=== PATIENT | male | born 1960 | race Caucasian/White ===

== ENCOUNTER → 2020-04-06 | Outpatient (CLI) | payer OTHER ==
--- NOTE | 2020-04-08 01:00 | ECWPNPC ---
PATIENT NAME: NEHA HERNÁNDEZ : 1960 GENDER: MALE VISIT DATE: 04/06/2020 DISCHARGE DATE: 04/06/20 1451 VISIT LOCKED DATE TIME: PHYSICIAN: YIN APARICIO RESOURCE: YIN APARICIO REASON FOR APPOINTMENT 1. 2ND OPINION- LOWER BACK HISTORY OF PRESENT ILLNESS GENERAL: - -59-YEAR-OLD MALE IN FOR WORKER'S COMP. SECOND OPINION. PATIENT HAS A HISTORY OF LOW BACK PAIN SINCE 05/20/1996 WHEN HE WAS INJURED WHILE LIFTING A FURNACE AT WORK. PATIENT STATES WHEN HE LIFTED THE FURNACE HE FELT A POP IN HIS BACK AND THAT THEN THE PAIN BEGAN. PER PATIENT REPORT HE HAS BEEN ON FENTANYL PATCH 12.5 AND BACLOFEN 20 MG 3 TIMES A DAY IN THE PAST AND THIS HAS HELPED HIS PAIN. HIS CURRENT PROVIDER REFUSES TO PRESCRIBE FENTANYL PATCHES AND HAS SINCE SWITCHED PATIENT TO NUCYNTA PER PATIENT REPORT THIS IS INADEQUATE TO COVER HIS PAIN. PATIENT ALSO STATES THAT HIS PREVIOUS PROVIDER DECREASED HIS BACLOFEN FROM 20 MG 3 TIMES A DAY TO 10 MG 3 TIMES A DAY AND THAT HE IS EXPERIENCING INCREASED PAIN A RESULT OF THIS. FALL RISK SCREENING: SCREENING :NO FALLS REPORTED IN THE LAST YEAR PAIN SCREENING: PATIENT HAS A COMPLAINT OF ACUTE OR CHRONIC PAIN :NO NURSING NOTE: - -. PAIN CENTER INTAKE QUESTIONS: DO YOU HAVE A HISTORY OF MRSA? :NO DO YOU TAKE A BLOOD THINNERS? :NO DO YOU HAVE ANY BLEEDING DISORDERS? :NO ANY NEW NUMBNESS OR WEAKNESS IN YOUR LEGS OR ARMS? :NO ANY PACEMAKER,DEFIBRILLATOR, OR DORSAL COLUMN STIMULATOR? :NO DO YOU HAVE ANY RASHES OR OPEN SORES? :NO ARE YOU ALLERGIC TO IV DYE? :NO ARE YOU DIABETIC? :YES ANY NEW PROBLEMS WITH YOUR MEDICATIONS? :NO HAVE YOU RECEIVED A VACCINE IN THE PAST 30 DAYS? :NO DO YOU PLAN TO RECEIVE A VACCINE IN THE NEXT 21 DAYS? :NO DO YOU NEED ANY PRESCRIPTION? :NO DO YOU TAKE ANY IMMUNOSUPPRESSIVE MEDICATIONS? :NO CURRENT MEDICATIONS TAKING BISOPROLOL-HYDROCHLOROTHIAZIDE 10-6.25 MG TABLET 1 TABLET ORALLY ONCE A DAY TAKING MONTELUKAST SODIUM 10 MG TABLET 1 TABLET ORALLY ONCE A DAY TAKING ALLOPURINOL 100 MG TABLET 1 TABLET ORALLY ONCE A DAY TAKING SIMVASTATIN 10 MG TABLET 1 TABLET IN THE EVENING ORALLY ONCE A DAY TAKING AMITRIPTYLINE HCL 150 MG TABLET 1 TABLET AT BEDTIME ORALLY ONCE A DAY TAKING BACLOFEN 10 MG TABLET 1 TABLET WITH FOOD OR MILK ORALLY THREE TIMES DAILY TAKING NUCYNTA 50 MG TABLET 1 TABLET ORALLY THREE TIMES DAILY TAKING VITAMIN D (ERGOCALCIFEROL) 50 MCG (2000 UT) CAPSULE 1 CAPSULE ORALLY ONCE A DAY TAKING AMIODARONE HCL 100 MG TABLET 1 TABLET ORALLY ONCE A DAY TAKING NEXIUM 40 MG CAPSULE DELAYED RELEASE 1 CAPSULE ORALLY ONCE A DAY TAKING GLIPIZIDE 5 MG TABLET 1 TABLET 30 MINUTES BEFORE BREAKFAST ORALLY ONCE A DAY TAKING AMLODIPINE BESYLATE 5 MG TABLET 1 TABLET ORALLY ONCE A DAY MEDICATION LIST REVIEWED AND RECONCILED WITH THE PATIENT PAST MEDICAL HISTORY DIABETES HYPERTENSION HYPERLIPIDEMIA ALLERGIES SULFA (FOR ALLERGY USE ONLY) PREDNISONE CELEBREX ZIAC MORPHINE SULFATE METFORMIN HCL GABAPENTIN BUTRANS TRAMADOL HCL TYLENOL ARTHRITIS PAIN ESOMEPRAZOLE MAGNESIUM VALSARTAN CODEINE SULFATE SURGICAL HISTORY NO SURGICAL HISTORY DOCUMENTED. FAMILY HISTORY FATHER: MOTHER: SIBLINGS: ALIVE DAUGHTER(S): ALIVE 5 BROTHER(S) , 4 SISTER(S) - HEALTHY. 1DAUGHTER(S) . FATHER- LEUKEMIAMOTHER- HEART REPLACEMENT, DEGENERATIVE JOINT DISEASEDAUGHTER- CLINICAL DEPRESSION1 BROTHER- LEUKEMIA. SOCIAL HISTORY GENERAL: TOBACCO USE ARE YOU A:FORMER SMOKER HOW LONG HAS IT BEEN SINCE YOU LAST SMOKED?> 10 YEARS SMOKING CESSATION INFORMATION GIVEN04/06/2020 LATEX QUESTIONNAIRE LATEX ALLERGY : HAVE YOU EVER DEVELOPED ANY TYPE OF REACTION AFTER HANDLING LATEX PRODUCTS SUCH RUBBER GLOVES, CONDOMS, DIAPHRAGMS, BALLOONS, SOCKS, OR UNDERWEAR?NO LATEX ALLERGY : HAVE YOU EVER DEVELOPED ANY TYPE OF REACTION DURING OR AFTER DENTAL APPOINTMENT, VAGINAL/RECTAL EXAMINATION, SURGICAL PROCEDURE, OR ANY OTHER EXPOSURE?NO LATEX RISK : HAVE YOU EVER HAD ANY DIFFICULTY BREATHING OR HIVES AFTER EATING OR HANDLING ANY FRUITS, OR VEGETABLES; SUCH KIWI, BANANAS, STONE FRUITS, OR CHESTNUTSNO LATEX RISK : DO YOU HAVE A PREVIOUS PERSONAL HISTORY OF MORE THAN NINE SURGERIES, SPINA BIFIDA, OR REPEATED CATHERIZATIONS? NO LATEX RISK : ARE YOU FREQUENTLY EXPOSED TO LATEX PRODUCTS IN YOUR OCCUPATION?YES DATE ASKED : 04/06/2020 ALCOHOL SCREENING DID YOU HAVE A DRINK CONTAINING ALCOHOL IN THE PAST YEAR?NO POINTS0 INTERPRETATIONNEGATIVE RECREATIONAL DRUG USE DRUG USE?NO CAFFEINE CAFFEINE USE?YES HOW OFTEN AND HOW MUCH? 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 OTHERS AT HOME: NONE. PAIN CLINIC PFS, CLERGY, PUBLIC HEALTH REFERRALS PFS REFERRAL NEEDED?NO CLERGY REFERRAL NEEDED?NO PUBLIC HEALTH REFERRAL NEEDED?NO WAS THE PROVIDER NOTIFIED OF ANY PERTINENT INFO?YES HAS THE PATIENT BEEN EDUCATED REGARDING HIS/HER PLAN OF CARE?YES HAS THE PATIENT BEEN EDUCATED REGARDING PAIN, THE RISK FOR PAIN, THE IMPORTANCE OF EFFECTIVE PAIN MANAGEMENT, AND THE PAIN ASSESSMENT PROCESS?YES ADVANCE DIRECTIVE ADVANCE DIRECTIVE DISCUSSED WITH PATIENT: PT. DENIES HOSPITALIZATION/MAJOR DIAGNOSTIC PROCEDURE NO HOSPITALIZATION HISTORY. REVIEW OF SYSTEMS CONSTITUTIONAL: ANY RECENT FEVER NO . CHILLS NO . WEIGHT CHANGE OF UNKNOWN REASONS NO . MUSCULOSKELETAL: ANY UNUSUAL JOINT PAIN OR SWELLING NOT MENTIONED NO . SYSTEMIC LUPUS NO . ANY NEUROMUSCULAR DISORDER NOT MENTIONED NO . LYME DISEASE NO . GASTROENTEROLOGY: ANY NEW CHANGE IN BOWEL CONTROL? NO . HISTORY OF LIVER DISORDER NOT MENTIONED NO . HISTORY OF UNUSUAL ABDOMINAL PAIN OR CRAMPING NOT MENTIONED NO . NO CONSTIPATION. GENITOURINARY: ANY NEW CHANGE IN BLADDER CONTROL? NO . ANY RENAL/KIDNEY CONDITON NOT MENTIONED NO . NEUROLOGY: HISTORY OF TBI NOT MENTIONED NO . OTHER NEW NUMBNESS OR PAIN PATTERNS NOT MENTIONED NO . NEW ONSET DIZZINESS OR NEUROLOGICAL CHANGES NOT MENTIONED NO . HISTORY OF SEVERE HEADACHES NOT MENTIONED NO . HISTORY OF STROKE OR NEUROLOGICAL DISORDER NOT MENTIONED NO . CARDIOLOGY: HEART SURGERY NO . CONGESTIVE HEART FAILURE/FLUID OVERLOAD NOT MENTIONED NO . HISTORY OF CHEST PAIN,IRREGULAR HEART BEAT NOT MENTIONED NO . RESPIRATORY: SHORTNESS OF BREATH ON EXERTION, WHEEZES, UNUSUAL COUGH NOT MENTIONED NO . ENDOCRINOLOGY: ADRENAL GLAND OR THYROID DISORDERS NOT MENTIONED NO . UNUSUAL URINATION, DIZZINESS OR LETHARGY NOT MENTIONED NO . VITAL SIGNS WT 254 LBS, HT 58 IN, BMI 53.08 INDEX, BP 145/90 MM HG, HR 72 /MIN, RR 18 /MIN, TEMP 98.2 F, OXYGEN SAT % 95%, SAFE IN ENV? 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 EXAMINATION GENERAL EXAMINATION: GENERALNO ACUTE DISTRESS, WELL NOURISHED AND HYDRATED. PSYCHAPPROPRIATE MOOD AND AFFECT . LUNGS:CLEAR TO AUSCULTATION BILATERALLY, NO WHEEZES, RHONCHI, RALES. HEART:NO MURMURS, REGULAR RATE AND RHYTHM. BACK:DENIES POINT TENDERNESS ALONG LUMBAR SPINE, SURROUNDING SKIN SHOWS NO ERYTHEMA, ECCHYMOSIS, INCREASED WARMTH, AND/OR SKIN ERUPTIONS NOTED. POSITIVE MODIFIED BILATERAL SLR . MUSCULOSKELETAL:EQUAL STRENGTH OF THE LOWER EXTREMITIES BILATERALLY . 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 SECOND OPINION. 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 WE'LL FOLLOW-UP IN ONE MONTH TO DETERMINE EFFICACY OF TREATMENT. PATIENT TO SIGN NARCOTIC AGREEMENT TODAY. INFORMED PATIENT TO STOP NUCYNTA ONCE HE STARTS ON THE FENTANYL. PATIENT HAS EXPRESSED UNDERSTANDING OF AND WAS IN AGREEMENT WITH TREATMENT PLAN. GIVEN TIME TO ASK QUESTIONS AND EXPRESS CONCERNS. , ISTOP REGISTRY REVIEWED AND DEMONSTRATES COMPLLIANCE. (REF # [id number] ) BRINGS IN MEDICATIONS WHICH IS APPROPRIATE FOR WHAT WAS DISPENSED. RECENT URINE TOXICOLOGY REVIEWED. NO UNAUTHORIZED MEDICATIONS. NO ILLICIT SUBSTANCES AND PRESCRIBED MEDICATIONS WERE PRESENT. PROCEDURES PN WORKMANS' COMP OPINION IN YOUR OPINION, WAS THE INCIDENT THAT THE PATIENT DESCRIBED THE COMPETENT MEDICAL CAUSE OF THIS INJURY/ILLNESS? YES ARE THE PATIENT'S COMPLAINTS CONSISTENT WITH HIS/HER HISTORY OF THE INJURY/ILLNESS? YES IS THE PATIENT'S HISTORY OF THE INJURY/ILLNESS CONSISTENT WITH YOUR OBJECTIVE FINDING? YES WHAT IS THE PERCENTAGE OF TEMPORARY IMPAIRMENT? MARKED = 75% IS THE PATIENT WORKING? YES DOCTOR ON SITE: KELLIE CLEMENT MD PROCEDURE CODES FA211 ESTABILISHED PATIENT [facility] FACILITY CHARGE DISPOSITION & COMMUNICATION FOLLOW UP 4 WEEKS (REASON: BACK PAIN NEW MED) ELECTRONICALLY SIGNED BY EMERITA ARIZA ON 04/07/2020 AT 08:48 AM EDT DISCLAIMER : THIS IS A VISIT SUMMARY EXTRACTED FROM THE [employer] CHART. IT IS NOT A COPY OF THE [employer] PROGRESS NOTE. MTDD
== END ==
LOC: M PAIN 14:15
PROVIDERS: ATTEND Family Medicine
DX: M51.86 Other intervertebral disc disorders, lumbar region (principal)

== ENCOUNTER → 2020-05-04 | Outpatient (CLI) | payer OTHER | LOC: M PAIN 08:30 | PROVIDERS: ATTEND Family Medicine | DX: M51.86 Other intervertebral disc disorders, lumbar region (principal) ==

== ENCOUNTER → 2020-08-06 | Outpatient (CLI) | payer OTHER ==
--- NOTE | 2020-08-10 05:58 | ECWPNPC ---
PATIENT NAME: NEHA HERNÁNDEZ : 1960 GENDER: MALE VISIT DATE: 08/06/2020 DISCHARGE DATE: 08/06/20 1200 VISIT LOCKED DATE TIME: PHYSICIAN: YIN APARICIO PHYSICIAN PAGER NO: ACTIVE RESOURCE: YIN APARICIO REASON FOR APPOINTMENT 1. W/C BACK/UTOX HISTORY OF PRESENT ILLNESS GENERAL: - 59-YEAR-OLD MALE IN FOR CHRONIC PAIN FOLLOW-UP. HE RATES HIS PAIN CURRENTLY AT AN 8 OUT OF 10 AND DESCRIBES IT ACHING, AND CONTINUOUS. HE FEELS MEDICATIONS ARE HELPFUL AND DENIES MED SIDE EFFECTS AT THIS TIME. PATIENT WAS HURT IN A WORK RELATED INCIDENT ON 05/20/1996 WHEN HE WAS INJURED WHILE LIFTING A FURNACE. FALL RISK SCREENING: SCREENING :NO FALLS REPORTED IN THE LAST YEAR PAIN SCREENING: PATIENT HAS A COMPLAINT OF ACUTE OR CHRONIC PAIN :YES LOCATION OF PAIN:LOW BACK INTENSITY OF PAIN (SCALE OF 1 TO 10):8 WHAT DOES YOUR PAIN FEEL LIKE:ACHING, CONTINOUS DURATION:CONTINOUS PAIN IS INCREASED BY:ACTIVITIES PAIN IS DECREASED BY:USE OF PAIN MEDICATIONS FENTANYL PATCHES NURSING NOTE: -. PAIN CENTER INTAKE QUESTIONS: DO YOU HAVE A HISTORY OF MRSA? :NO DO YOU TAKE A BLOOD THINNERS? :NO DO YOU HAVE ANY BLEEDING DISORDERS? :NO ANY NEW NUMBNESS OR WEAKNESS IN YOUR LEGS OR ARMS? :NO ANY PACEMAKER,DEFIBRILLATOR, OR DORSAL COLUMN STIMULATOR? :NO DO YOU HAVE ANY RASHES OR OPEN SORES? :NO ARE YOU ALLERGIC TO IV DYE? :NO ARE YOU DIABETIC? :YES ANY NEW PROBLEMS WITH YOUR MEDICATIONS? :NO HAVE YOU RECEIVED A VACCINE IN THE PAST 30 DAYS? :NO DO YOU PLAN TO RECEIVE A VACCINE IN THE NEXT 21 DAYS? :YES IF SO WHAT VACCINE AND WHEN? PLANS ON GETTING THE FLU SHOT [place] DO YOU NEED ANY PRESCRIPTION? :YES FENTANYL PATCHES, AMITRIPTYLINE, BACLOFEN DO YOU TAKE ANY IMMUNOSUPPRESSIVE MEDICATIONS? :NO ANY HISTORY OF SEIZURES? :NO ANY HISTORY OF CARDIAC ISSUES OR EVENTS? :NO DO YOU HAVE SLEEP APNEA? :NO ANY RECENT HEAD INJURY? :NO DO YOU HAVE ANY NEW INFECTIONS? :NO IS THERE A CHANCE YOU COULD BE ? :NO ARE YOU BREAST FEEDING? :NO CURRENT MEDICATIONS TAKING BISOPROLOL-HYDROCHLOROTHIAZIDE 10-6.25 MG TABLET 1 TABLET ORALLY ONCE A DAY TAKING MONTELUKAST SODIUM 10 MG TABLET 1 TABLET ORALLY ONCE A DAY TAKING ALLOPURINOL 100 MG TABLET 1 TABLET ORALLY ONCE A DAY TAKING SIMVASTATIN 10 MG TABLET 1 TABLET IN THE EVENING ORALLY ONCE A DAY TAKING VITAMIN D (ERGOCALCIFEROL) 50 MCG (1999) CAPSULE 1 CAPSULE ORALLY ONCE A DAY TAKING AMIODARONE HCL 100 MG TABLET 1 TABLET ORALLY ONCE A DAY TAKING NEXIUM 40 MG CAPSULE DELAYED RELEASE 1 CAPSULE ORALLY ONCE A DAY TAKING GLIPIZIDE 5 MG TABLET 1 TABLET 30 MINUTES BEFORE BREAKFAST ORALLY ONCE A DAY TAKING AMLODIPINE BESYLATE 5 MG TABLET 1 TABLET ORALLY ONCE A DAY TAKING BACLOFEN 20 MG TABLET 1 TABLET WITH FOOD OR MILK ORALLY THREE TIMES DAILY TAKING AMITRIPTYLINE HCL 150 MG TABLET 1 TABLET AT BEDTIME ORALLY ONCE A DAY TAKING FENTANYL 12 MCG/HR PATCH 72 HOUR 1 PATCH TO SKIN TRANSDERMAL EVERY 3 DAYS MEDICATION LIST REVIEWED AND RECONCILED WITH THE PATIENT PAST MEDICAL HISTORY DIABETES HYPERTENSION HYPERLIPIDEMIA ALLERGIES SULFA (FOR ALLERGY USE ONLY) PREDNISONE CELEBREX ZIAC MORPHINE SULFATE METFORMIN HCL GABAPENTIN BUTRANS TRAMADOL HCL TYLENOL ARTHRITIS PAIN ESOMEPRAZOLE MAGNESIUM VALSARTAN CODEINE SULFATE SURGICAL HISTORY NO SURGICAL HISTORY DOCUMENTED. FAMILY HISTORY FATHER: MOTHER: SIBLINGS: ALIVE DAUGHTER(S): ALIVE 5 BROTHER(S) , 4 SISTER(S) - HEALTHY. 1DAUGHTER(S) . FATHER- LEUKEMIAMOTHER- HEART REPLACEMENT, DEGENERATIVE JOINT DISEASEDAUGHTER- CLINICAL DEPRESSION1 BROTHER- LEUKEMIA. SOCIAL HISTORY GENERAL: TOBACCO USE ARE YOU A:FORMER SMOKER HOW LONG HAS IT BEEN SINCE YOU LAST SMOKED?> 10 YEARS SMOKING CESSATION INFORMATION GIVEN04/06/2020 LATEX QUESTIONNAIRE LATEX ALLERGY : HAVE YOU EVER DEVELOPED ANY TYPE OF REACTION AFTER HANDLING LATEX PRODUCTS SUCH RUBBER GLOVES, CONDOMS, DIAPHRAGMS, BALLOONS, SOCKS, OR UNDERWEAR?NO LATEX ALLERGY : HAVE YOU EVER DEVELOPED ANY TYPE OF REACTION DURING OR AFTER DENTAL APPOINTMENT, VAGINAL/RECTAL EXAMINATION, SURGICAL PROCEDURE, OR ANY OTHER EXPOSURE?NO LATEX RISK : HAVE YOU EVER HAD ANY DIFFICULTY BREATHING OR HIVES AFTER EATING OR HANDLING ANY FRUITS, OR VEGETABLES; SUCH KIWI, BANANAS, STONE FRUITS, OR CHESTNUTSNO LATEX RISK : DO YOU HAVE A PREVIOUS PERSONAL HISTORY OF MORE THAN NINE SURGERIES, SPINA BIFIDA, OR REPEATED CATHERIZATIONS? NO LATEX RISK : ARE YOU FREQUENTLY EXPOSED TO LATEX PRODUCTS IN YOUR OCCUPATION?YES DATE ASKED : 08/06/2020 ALCOHOL SCREENING DID YOU HAVE A DRINK CONTAINING ALCOHOL IN THE PAST YEAR?NO POINTS0 INTERPRETATIONNEGATIVE RECREATIONAL DRUG USE DRUG USE?NO PATIENT DENIES ABUSE OR MISSUSED OF ANY MEDICATION DENIES PATIENT DENIES USE OF ANY ILLEGAL SUBSTANCE INCLUDING MARIJUANA OR COCAINE DENIES CAFFEINE CAFFEINE USE?YES HOW OFTEN AND HOW MUCH? 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 OTHERS AT HOME: NONE. PAIN CLINIC PFS, CLERGY, PUBLIC HEALTH REFERRALS PFS REFERRAL NEEDED?NO CLERGY REFERRAL NEEDED?NO PUBLIC HEALTH REFERRAL NEEDED?NO WAS THE PROVIDER NOTIFIED OF ANY PERTINENT INFO?YES HAS THE PATIENT BEEN EDUCATED REGARDING HIS/HER PLAN OF CARE?YES HAS THE PATIENT BEEN EDUCATED REGARDING PAIN, THE RISK FOR PAIN, THE IMPORTANCE OF EFFECTIVE PAIN MANAGEMENT, AND THE PAIN ASSESSMENT PROCESS?YES ADVANCE DIRECTIVE ADVANCE DIRECTIVE DISCUSSED WITH PATIENT:YES PATIENT STATES HE HAS NO ADVANCED DIRECTIVES AND DECLINES INORMATION HOSPITALIZATION/MAJOR DIAGNOSTIC PROCEDURE NO HOSPITALIZATION HISTORY. REVIEW OF SYSTEMS CONSTITUTIONAL: ANY RECENT FEVER NO . CHILLS NO . WEIGHT CHANGE OF UNKNOWN REASONS NO . GASTROENTEROLOGY: NEW UNEXPLAINABLE CHANGES IN BOWEL CONTROL NO . CONSTIPATION NO . GENITOURINARY: ANY NEW CHANGE IN BLADDER CONTROL? NO . NEUROLOGY: NEW ONSET DIZZINESS OR NEUROLOGICAL CHANGES NOT MENTIONED NO . NEW NUMBNESS OR PAIN PATTERNS NOT MENTIONED AND PERTINENT TO TODAY'S VISIT NO . CARDIOLOGY: NEW CHEST PRESSURE NO . NEW CHEST PAIN NO . RESPIRATORY: UNEXPLAINABLE COUGH NO . NEW SHORTNESS OF BREATH NO . VITAL SIGNS WT 243.6 LBS, HT 58 IN, BMI 50.91 INDEX, BP 118/75 MM HG, HR 78 /MIN, RR 18 /MIN, TEMP 98.2 F, OXYGEN SAT % 100%, SAFE IN ENV? (Y/N) YES, NA INITIALS AW 1133, REVIEWED BY: BEVREEDGARD FONTANA RN. EXAMINATION GENERAL EXAMINATION: GENERALNO ACUTE DISTRESS, WELL NOURISHED AND HYDRATED. PSYCHAPPROPRIATE MOOD AND AFFECT . LUNGS:CLEAR TO AUSCULTATION BILATERALLY, NO WHEEZES, RHONCHI, RALES. HEART:NO MURMURS, REGULAR RATE AND RHYTHM. ASSESSMENTS INTERVERTEBRAL DISC DISEASE - M51.9 (PRIMARY) TREATMENT INTERVERTEBRAL DISC DISEASE NOTES: 59 YEAR OLD MALE IN FOR WORKERS COMP CHRONIC PAIN FOLLOW UP. GIVEN PRESENTING SYMPTOMS RECOMMEND CONTINUATION OF CURRENT MEDICATION REGIMEN WITH FOLLOW UP IN 3 MONTHS. PATIENT HAS EXPRESSED UNDERSTANDING OF AND WAS IN AGREEMENT WITH TREATMENT PLAN. GIVEN TIME TO ASK QUESTIONS AND EXPRESS CONCERNS. , ISTOP REGISTRY REVIEWED AND DEMONSTRATES COMPLLIANCE. (REF # [id number] ) BRINGS IN MEDICATIONS WHICH IS APPROPRIATE FOR WHAT WAS DISPENSED. RECENT URINE TOXICOLOGY REVIEWED. NO UNAUTHORIZED MEDICATIONS. NO ILLICIT SUBSTANCES AND PRESCRIBED MEDICATIONS WERE PRESENT. PROCEDURE CODES FA211 ESTABILISHED PATIENT [facility] CHARGE DISPOSITION & COMMUNICATION FOLLOW UP 3 MONTHS (REASON: WORKERS COMP/BACK PAIN ) ELECTRONICALLY SIGNED BY EMERITA ARIZA ON 08/09/2020 AT 08:33 AM EST DISCLAIMER : THIS IS A VISIT SUMMARY EXTRACTED FROM THE [employer] CHART. IT IS NOT A COPY OF THE [employer] PROGRESS NOTE. RAHUL
== END ==
LOC: M PAIN 11:00
PROVIDERS: ATTEND Family Medicine
DX: M51.9 Unspecified thoracic, thoracolumbar and lumbosacral intervertebral disc disorder (principal); E11.9 Type 2 diabetes mellitus without complications; I10 Essential (primary) hypertension; E78.5 Hyperlipidemia, unspecified; Z87.891 Personal history of nicotine dependence; Z79.84 Long term (current) use of oral hypoglycemic drugs; Z79.899 Other long term (current) drug therapy; Z88.2 Allergy status to sulfonamides; Z88.8 Allergy status to other drugs, medicaments and biological substances; Z88.5 Allergy status to narcotic agent; Z88.6 Allergy status to analgesic agent

== ENCOUNTER → 2020-10-18 | Outpatient (CLI) | payer OTHER ==
--- NOTE | 2020-10-20 04:27 | ECWPNPC ---
PATIENT NAME: NEHA HERNÁNDEZ : 1960 GENDER: MALE VISIT DATE: 10/18/2020 DISCHARGE DATE: 10/18/20 1405 VISIT LOCKED DATE TIME: PHYSICIAN: YIN APARICIO PHYSICIAN PAGER NO: ACTIVE RESOURCE: YIN APARICIO REASON FOR APPOINTMENT 1. WORKERS COMP/BACK PAIN HISTORY OF PRESENT ILLNESS GENERAL: 60-YEAR-OLD MALE IN FOR WORKER'S COMP. CHRONIC PAIN FOLLOW-UP. HE RATES HIS PAIN CURRENTLY AT A 7 OUT OF 10 AND DESCRIBES IT ACHING, SHARP, AND SHOOTING. PATIENT FEELS MEDICATIONS ARE HELPFUL BUT DOES ADMIT TO BREAKTHROUGH PAIN AT TIMES. PATIENT WAS HURT IN A WORK RELATED INCIDENT ON 05/20/1996 WHEN HE WAS INJURED WHILE LIFTING A FURNACE. -. FALL RISK SCREENING: SCREENING :NO FALLS REPORTED IN THE LAST YEAR PAIN SCREENING: PATIENT HAS A COMPLAINT OF ACUTE OR CHRONIC PAIN :YES LOCATION OF PAIN:LOW BACK INTENSITY OF PAIN (SCALE OF 1 TO 10):7 WHAT DOES YOUR PAIN FEEL LIKE:ACHING, SHARP, SHOOTING DURATION:CONTINOUS, CONSTANT PAIN IS INCREASED BY:ACTIVITIES WALKING, BENDING PAIN IS DECREASED BY:USE OF PAIN MEDICATIONS REST NURSING NOTE: -. PAIN CENTER INTAKE QUESTIONS: DO YOU HAVE A HISTORY OF MRSA? :NO DO YOU TAKE A BLOOD THINNERS? :NO DO YOU HAVE ANY BLEEDING DISORDERS? :NO ANY NEW NUMBNESS OR WEAKNESS IN YOUR LEGS OR ARMS? :NO ANY PACEMAKER,DEFIBRILLATOR, OR DORSAL COLUMN STIMULATOR? :NO DO YOU HAVE ANY RASHES OR OPEN SORES? :NO ARE YOU ALLERGIC TO IV DYE? :NO ARE YOU DIABETIC? :YES ANY NEW PROBLEMS WITH YOUR MEDICATIONS? :YES PATIENT STATING THAT PATCHES ON BACK NOT WORKING HAVE YOU RECEIVED A VACCINE IN THE PAST 30 DAYS? :YES IF SO WHAT VACCINE AND WHEN? FLU SHOT END BER DO YOU PLAN TO RECEIVE A VACCINE IN THE NEXT 21 DAYS? :NO DO YOU NEED ANY PRESCRIPTION? :NO DO YOU TAKE ANY IMMUNOSUPPRESSIVE MEDICATIONS? :YES ALLOPURINOL IS THERE A CHANCE YOU COULD BE ? :NO ARE YOU BREAST FEEDING? :NO CURRENT MEDICATIONS TAKING BISOPROLOL-HYDROCHLOROTHIAZIDE 10-6.25 MG TABLET 2 TABLET ORALLY ONCE A DAY TAKING MONTELUKAST SODIUM 10 MG TABLET 1 TABLET ORALLY ONCE A DAY TAKING ALLOPURINOL 100 MG TABLET 1 TABLET ORALLY ONCE A DAY TAKING SIMVASTATIN 10 MG TABLET 1 TABLET IN THE EVENING ORALLY ONCE A DAY TAKING VITAMIN D (ERGOCALCIFEROL) 50 MCG (1999) CAPSULE 1 CAPSULE ORALLY ONCE A DAY TAKING AMIODARONE HCL 100 MG TABLET 1 TABLET ORALLY ONCE A DAY TAKING NEXIUM 40 MG CAPSULE DELAYED RELEASE 1 CAPSULE ORALLY ONCE A DAY TAKING GLIPIZIDE 5 MG TABLET 1 TABLET 30 MINUTES BEFORE BREAKFAST ORALLY ONCE A DAY TAKING AMLODIPINE BESYLATE 5 MG TABLET 1 TABLET ORALLY ONCE A DAY TAKING BACLOFEN 20 MG TABLET 1 TABLET WITH FOOD OR MILK ORALLY THREE TIMES DAILY TAKING AMITRIPTYLINE HCL 150 MG TABLET 1 TABLET AT BEDTIME ORALLY ONCE A DAY TAKING FENTANYL 12 MCG/HR PATCH 72 HOUR 1 PATCH TO SKIN TRANSDERMAL EVERY 3 DAYS MEDICATION LIST REVIEWED AND RECONCILED WITH THE PATIENT PAST MEDICAL HISTORY DIABETES HYPERTENSION HYPERLIPIDEMIA BACK PAIN ALLERGIES SULFA (FOR ALLERGY USE ONLY) PREDNISONE CELEBREX ZIAC MORPHINE SULFATE METFORMIN HCL GABAPENTIN BUTRANS TRAMADOL HCL TYLENOL ARTHRITIS PAIN ESOMEPRAZOLE MAGNESIUM VALSARTAN CODEINE SULFATE SOCIAL HISTORY GENERAL: TOBACCO USE ARE YOU A:FORMER SMOKER HOW LONG HAS IT BEEN SINCE YOU LAST SMOKED?> 10 YEARS SMOKING CESSATION INFORMATION GIVEN04/06/2020 LATEX QUESTIONNAIRE LATEX ALLERGY : HAVE YOU EVER DEVELOPED ANY TYPE OF REACTION AFTER HANDLING LATEX PRODUCTS SUCH RUBBER GLOVES, CONDOMS, DIAPHRAGMS, BALLOONS, SOCKS, OR UNDERWEAR?NO LATEX ALLERGY : HAVE YOU EVER DEVELOPED ANY TYPE OF REACTION DURING OR AFTER DENTAL APPOINTMENT, VAGINAL/RECTAL EXAMINATION, SURGICAL PROCEDURE, OR ANY OTHER EXPOSURE?NO LATEX RISK : HAVE YOU EVER HAD ANY DIFFICULTY BREATHING OR HIVES AFTER EATING OR HANDLING ANY FRUITS, OR VEGETABLES; SUCH KIWI, BANANAS, STONE FRUITS, OR CHESTNUTSNO LATEX RISK : DO YOU HAVE A PREVIOUS PERSONAL HISTORY OF MORE THAN NINE SURGERIES, SPINA BIFIDA, OR REPEATED CATHERIZATIONS? NO LATEX RISK : ARE YOU FREQUENTLY EXPOSED TO LATEX PRODUCTS IN YOUR OCCUPATION?NO DATE ASKED : 10/18/2020 ALCOHOL USE: YES. ALCOHOL SCREENING DID YOU HAVE A DRINK CONTAINING ALCOHOL IN THE PAST YEAR?NO POINTS0 INTERPRETATIONNEGATIVE RECREATIONAL DRUG USE DRUG USE?NO PATIENT DENIES ABUSE OR MISSUSED OF ANY MEDICATION DENIES PATIENT DENIES USE OF ANY ILLEGAL SUBSTANCE INCLUDING MARIJUANA OR COCAINE DENIES CAFFEINE CAFFEINE USE?YES HOW OFTEN AND HOW MUCH? 2/DAY LANGUAGE LANGUAGES SPOKEN:ARABIC LEARNING BARRIERS / SPECIAL NEEDS CHANGE FROM LAST VISIT?YES BARRIERS TO LEARNING?NO HEARING IMPAIRED?NO VISION IMPAIRED?YES :CORRECTIVE LENSES COGNITIVELY IMPAIRED?NO READINESS TO LEARN?YES LEARNING PREFERENCES?NO LEARNING CAPABILITIES PRESENT?YES EMOTIONAL BARRIERS?NO SPECIAL DEVICES?NO RESIDENTIAL SUPPORT WORKER NEEDED?NO MARITAL STATUS: . OTHERS AT HOME: NONE. REVIEW OF SYSTEMS CONSTITUTIONAL: ANY RECENT FEVER NO . CHILLS NO . WEIGHT CHANGE OF UNKNOWN REASONS NO . GASTROENTEROLOGY: NEW UNEXPLAINABLE CHANGES IN BOWEL CONTROL NO . CONSTIPATION NO . GENITOURINARY: ANY NEW CHANGE IN BLADDER CONTROL? NO . NEUROLOGY: NEW ONSET DIZZINESS OR NEUROLOGICAL CHANGES NOT MENTIONED NO . NEW NUMBNESS OR PAIN PATTERNS NOT MENTIONED AND PERTINENT TO TODAY'S VISIT NO . CARDIOLOGY: NEW CHEST PRESSURE NO . NEW CHEST PAIN NO . RESPIRATORY: UNEXPLAINABLE COUGH NO . NEW SHORTNESS OF BREATH NO . VITAL SIGNS WT 246.6 LBS, HT 58 IN, BMI 51.53 INDEX, BP 137/82 MM HG, HR 86 /MIN, RR 18 /MIN, TEMP 98.7 F, OXYGEN SAT % 97, SAFE IN ENV? (Y/N) YES, REVIEWED BY: APA. PALAK RN. EXAMINATION GENERAL EXAMINATION: GENERALNO ACUTE DISTRESS, WELL NOURISHED AND HYDRATED. PSYCHAPPROPRIATE MOOD AND AFFECT . LUNGS:CLEAR TO AUSCULTATION BILATERALLY, NO WHEEZES, RHONCHI, RALES. HEART:NO MURMURS, REGULAR RATE AND RHYTHM. ASSESSMENTS INTERVERTEBRAL DISC DISEASE - M51.9 (PRIMARY), RISK: (NULL) TREATMENT INTERVERTEBRAL DISC DISEASE NOTES: 60-YEAR-OLD MALE IN FOR CHRONIC PAIN FOLLOW-UP. INCREASING PATIENT'S FENTANYL WAS DISCUSSED AND IT WAS DECIDED AT THIS TIME WE WILL MAINTAIN CURRENT DOSAGE WITH FOLLOW-UP IN 2 MONTHS. PATIENT EXPRESSED UNDERSTANDING OF AND WAS IN AGREEMENT WITH TREATMENT PLAN. GIVEN TIME TO ASK QUESTIONS AND EXPRESS CONCERNS. , ISTOP REGISTRY REVIEWED AND DEMONSTRATES COMPLLIANCE. (REF # [id number] ) BRINGS IN MEDICATIONS WHICH IS APPROPRIATE FOR WHAT WAS DISPENSED. RECENT URINE TOXICOLOGY REVIEWED. NO UNAUTHORIZED MEDICATIONS. NO ILLICIT SUBSTANCES AND PRESCRIBED MEDICATIONS WERE PRESENT. OTHERS REFILL BACLOFEN TABLET, 20 MG, 1 TABLET WITH FOOD OR MILK, ORALLY, THREE TIMES DAILY, 30 DAYS, 90 REFILL AMITRIPTYLINE HCL TABLET, 150 MG, 1 TABLET AT BEDTIME, ORALLY, ONCE A DAY, 30 DAYS, 30 TABLET PROCEDURES PN WORKMANS' COMP OPINION IN YOUR OPINION, WAS THE INCIDENT THAT THE PATIENT DESCRIBED THE COMPETENT MEDICAL CAUSE OF THIS INJURY/ILLNESS? YES ARE THE PATIENT'S COMPLAINTS CONSISTENT WITH HIS/HER HISTORY OF THE INJURY/ILLNESS? YES IS THE PATIENT'S HISTORY OF THE INJURY/ILLNESS CONSISTENT WITH YOUR OBJECTIVE FINDING? YES WHAT IS THE PERCENTAGE OF TEMPORARY IMPAIRMENT? MARKED = 75% IS THE PATIENT WORKING? YES DOCTOR ON SITE: KELLIE CLEMENT MD PROCEDURE CODES FA211 ESTABILISHED PATIENT [facility] CHARGE DISPOSITION & COMMUNICATION FOLLOW UP 3 MONTHS (REASON: BACK PAIN ) ELECTRONICALLY SIGNED BY EMERITA ARIZA ON 10/19/2020 AT 01:25 PM EST DISCLAIMER : THIS IS A VISIT SUMMARY EXTRACTED FROM THE [employer] CHART. IT IS NOT A COPY OF THE [email or web address] PROGRESS NOTE. RAHUL
== END ==
LOC: M PAIN 13:45
PROVIDERS: ATTEND Family Medicine
DX: M51.9 Unspecified thoracic, thoracolumbar and lumbosacral intervertebral disc disorder (principal); E11.9 Type 2 diabetes mellitus without complications; I10 Essential (primary) hypertension; E78.5 Hyperlipidemia, unspecified; Z87.891 Personal history of nicotine dependence; Z79.84 Long term (current) use of oral hypoglycemic drugs; Z79.899 Other long term (current) drug therapy; Z88.2 Allergy status to sulfonamides; Z88.8 Allergy status to other drugs, medicaments and biological substances; Z88.5 Allergy status to narcotic agent

== ENCOUNTER → 2021-01-17 | Outpatient (CLI) | payer OTHER ==
--- NOTE | 2021-01-20 05:56 | ECWPNPC ---
PATIENT NAME: NEHA HERNÁNDEZ : 1960 GENDER: MALE VISIT DATE: 01/17/2021 DISCHARGE DATE: 01/17/21 1425 VISIT LOCKED DATE TIME: PHYSICIAN: YIN APARICIO PHYSICIAN PAGER NO: ACTIVE RESOURCE: YIN APARICIO REASON FOR APPOINTMENT 1. W/C BACK PAIN HISTORY OF PRESENT ILLNESS DEPRESSION SCREENING: PHQ-2 (2015 EDITION) LITTLE INTEREST OR PLEASURE IN DOING THINGS?NOT AT ALL FEELING DOWN, DEPRESSED, OR HOPELESS?NOT AT ALL TOTAL SCORE0 60-YEAR-OLD MALE IN FOR WORKER'S COMP. CHRONIC PAIN FOLLOW-UP. HE RATES HIS PAIN CURRENTLY AT AN 8 OUT OF 10 AND DESCRIBES IT ACHING, AND THROBBING. PATIENT DOES ADMIT TO INCREASED PAIN AT TIMES FOR WHICH HE TAKES EXTRA STRENGTH TYLENOL FOR. PATIENT WAS HURT IN A WORK RELATED INCIDENT ON 05/20/1996 WHEN HE WAS INJURED WHILE LIFTING A FURNACE. GENERAL: -. FALL RISK SCREENING: SCREENING : NO FALLS REPORTED IN THIS YEAR. PAIN SCREENING: PATIENT HAS A COMPLAINT OF ACUTE OR CHRONIC PAIN :YES LOCATION OF PAIN:MID BACK, LOW BACK INTENSITY OF PAIN (SCALE OF 1 TO 10):8 WHAT DOES YOUR PAIN FEEL LIKE:ACHING, THROBBING DURATION:CONTINOUS, CONSTANT, ALL DAY PAIN IS INCREASED BY:ACTIVITIES, PROLONGED STANDING PAIN IS DECREASED BY:USE OF PAIN MEDICATIONS NURSING NOTE: -. PAIN CENTER INTAKE QUESTIONS: DO YOU HAVE A HISTORY OF MRSA? :NO DO YOU TAKE A BLOOD THINNERS? :NO DO YOU HAVE ANY BLEEDING DISORDERS? :NO ANY NEW NUMBNESS OR WEAKNESS IN YOUR LEGS OR ARMS? :NO ANY PACEMAKER,DEFIBRILLATOR, OR DORSAL COLUMN STIMULATOR? :NO DO YOU HAVE ANY RASHES OR OPEN SORES? :NO ARE YOU ALLERGIC TO IV DYE? :NO ARE YOU DIABETIC? :YES ANY NEW PROBLEMS WITH YOUR MEDICATIONS? :YES PATIENT STATING THAT PATCHES ON BACK NOT WORKING HAVE YOU RECEIVED A VACCINE IN THE PAST 30 DAYS? :NO DO YOU PLAN TO RECEIVE A VACCINE IN THE NEXT 21 DAYS? :NO DO YOU NEED ANY PRESCRIPTION? :YES AMITRIPTYLINE, BACLOFEN AND FENTANYL DO YOU TAKE ANY IMMUNOSUPPRESSIVE MEDICATIONS? :YES ALLOPURINOL IS THERE A CHANCE YOU COULD BE ? :NO ARE YOU BREAST FEEDING? :NO CURRENT MEDICATIONS TAKING MONTELUKAST SODIUM 10 MG TABLET 1 TABLET ORALLY ONCE A DAY TAKING BISOPROLOL-HYDROCHLOROTHIAZIDE 10-6.25 MG TABLET 2 TABLET ORALLY ONCE A DAY TAKING ALLOPURINOL 100 MG TABLET 1 TABLET ORALLY ONCE A DAY TAKING SIMVASTATIN 10 MG TABLET 1 TABLET IN THE EVENING ORALLY ONCE A DAY TAKING VITAMIN D (ERGOCALCIFEROL) 50 MCG (2000 UT) CAPSULE 1 CAPSULE ORALLY ONCE A DAY TAKING AMIODARONE HCL 100 MG TABLET 1 TABLET ORALLY ONCE A DAY TAKING NEXIUM 40 MG CAPSULE DELAYED RELEASE 1 CAPSULE ORALLY ONCE A DAY TAKING GLIPIZIDE 5 MG TABLET 1 TABLET 30 MINUTES BEFORE BREAKFAST ORALLY ONCE A DAY TAKING AMLODIPINE BESYLATE 5 MG TABLET 1 TABLET ORALLY ONCE A DAY TAKING AMITRIPTYLINE HCL 150 MG TABLET 1 TABLET AT BEDTIME ORALLY ONCE A DAY TAKING BACLOFEN 20 MG TABLET 1 TABLET WITH FOOD OR MILK ORALLY THREE TIMES DAILY TAKING FENTANYL 12 MCG/HR PATCH 72 HOUR 1 PATCH TO SKIN TRANSDERMAL EVERY 3 DAYS TAKING VITAMIN B12 1000 MCG TABLET EXTENDED RELEASE 1 TABLET ORALLY ONCE A DAY TAKING TYLENOL 1 TAB ORAL MEDICATION LIST REVIEWED AND RECONCILED WITH THE PATIENT PAST MEDICAL HISTORY DIABETES HYPERTENSION HYPERLIPIDEMIA BACK PAIN ALLERGIES SULFA (FOR ALLERGY USE ONLY) PREDNISONE CELEBREX ZIAC MORPHINE SULFATE METFORMIN HCL GABAPENTIN BUTRANS TRAMADOL HCL TYLENOL ARTHRITIS PAIN ESOMEPRAZOLE MAGNESIUM VALSARTAN CODEINE SULFATE SOCIAL HISTORY GENERAL: TOBACCO USE ARE YOU A:FORMER SMOKER HOW LONG HAS IT BEEN SINCE YOU LAST SMOKED?> 10 YEARS SMOKING CESSATION INFORMATION GIVEN04/06/2020 LATEX QUESTIONNAIRE LATEX ALLERGY : HAVE YOU EVER DEVELOPED ANY TYPE OF REACTION AFTER HANDLING LATEX PRODUCTS SUCH RUBBER GLOVES, CONDOMS, DIAPHRAGMS, BALLOONS, SOCKS, OR UNDERWEAR?NO LATEX ALLERGY : HAVE YOU EVER DEVELOPED ANY TYPE OF REACTION DURING OR AFTER DENTAL APPOINTMENT, VAGINAL/RECTAL EXAMINATION, SURGICAL PROCEDURE, OR ANY OTHER EXPOSURE?NO LATEX RISK : HAVE YOU EVER HAD ANY DIFFICULTY BREATHING OR HIVES AFTER EATING OR HANDLING ANY FRUITS, OR VEGETABLES; SUCH KIWI, BANANAS, STONE FRUITS, OR CHESTNUTSNO LATEX RISK : DO YOU HAVE A PREVIOUS PERSONAL HISTORY OF MORE THAN NINE SURGERIES, SPINA BIFIDA, OR REPEATED CATHERIZATIONS? NO LATEX RISK : ARE YOU FREQUENTLY EXPOSED TO LATEX PRODUCTS IN YOUR OCCUPATION?NO DATE ASKED : 01/17/2021 ALCOHOL USE: YES. ALCOHOL SCREENING DID YOU HAVE A DRINK CONTAINING ALCOHOL IN THE PAST YEAR?NO POINTS0 INTERPRETATIONNEGATIVE RECREATIONAL DRUG USE DRUG USE?NO PATIENT DENIES ABUSE OR MISSUSED OF ANY MEDICATION DENIES PATIENT DENIES USE OF ANY ILLEGAL SUBSTANCE INCLUDING MARIJUANA OR COCAINE DENIES CAFFEINE CAFFEINE USE?YES HOW OFTEN AND HOW MUCH? 2/DAY LANGUAGE LANGUAGES SPOKEN:[place]AT[place] LEARNING BARRIERS / SPECIAL NEEDS CHANGE FROM LAST VISIT?NO BARRIERS TO LEARNING?NO HEARING IMPAIRED?NO VISION IMPAIRED?YES :CORRECTIVE LENSES COGNITIVELY IMPAIRED?NO READINESS TO LEARN?YES LEARNING PREFERENCES?NO LEARNING CAPABILITIES PRESENT?YES EMOTIONAL BARRIERS?NO SPECIAL DEVICES?NO CAMP RECREATION SPECIALIST NEEDED?NO MARITAL STATUS: . OTHERS AT HOME: NONE. REVIEW OF SYSTEMS CONSTITUTIONAL: ANY RECENT FEVER NO . CHILLS NO . WEIGHT CHANGE OF UNKNOWN REASONS NO . GASTROENTEROLOGY: NEW UNEXPLAINABLE CHANGES IN BOWEL CONTROL NO . CONSTIPATION NO . GENITOURINARY: ANY NEW CHANGE IN BLADDER CONTROL? NO . NEUROLOGY: NEW ONSET DIZZINESS OR NEUROLOGICAL CHANGES NOT MENTIONED NO . NEW NUMBNESS OR PAIN PATTERNS NOT MENTIONED AND PERTINENT TO TODAY'S VISIT NO . CARDIOLOGY: NEW CHEST PRESSURE NO . PATIENT DENIES NO . RESPIRATORY: UNEXPLAINABLE COUGH NO . NEW SHORTNESS OF BREATH NO . VITAL SIGNS WT 250.8 LBS, HT 58 IN, BMI 52.41 INDEX, BP 118/83 MM HG, HR 81 /MIN, RR 18 /MIN, TEMP 98.6 F, OXYGEN SAT % 96%, SAFE IN ENV? (Y/N) YES, NA INITIALS AW [id number].CYNTHIA MOURA. EXAMINATION GENERAL EXAMINATION: GENERALNO ACUTE DISTRESS, WELL NOURISHED AND HYDRATED. PSYCHAPPROPRIATE MOOD AND AFFECT . LUNGS:CLEAR TO AUSCULTATION BILATERALLY, NO WHEEZES, RHONCHI, RALES. HEART:NO MURMURS, REGULAR RATE AND RHYTHM. ASSESSMENTS INTERVERTEBRAL DISC DISEASE - M51.9 (PRIMARY), RISK: (NULL) TREATMENT INTERVERTEBRAL DISC DISEASE REFILL BACLOFEN TABLET, 20 MG, 1 TABLET WITH FOOD OR MILK, ORALLY, THREE TIMES DAILY, 30 DAYS, 90 REFILL FENTANYL PATCH 72 HOUR, 12 MCG/HR, 1 PATCH TO SKIN, TRANSDERMAL, EVERY 3 DAYS, 30 DAYS, 10 REFILL AMITRIPTYLINE HCL TABLET, 150 MG, 1 TABLET AT BEDTIME, ORALLY, ONCE A DAY, 30 DAYS, 30 TABLET NOTES: 60-YEAR-OLD MALE IN FOR WORKER'S COMP. CHRONIC PAIN FOLLOW-UP. GIVEN PRESENTING SYMPTOMS RECOMMEND THAT PATIENT TAKE 2 EXTRA STRENGTH TYLENOL IN THE MORNING AND AT NIGHT WHEN HE IS EXPERIENCING PAIN EXACERBATIONS. FURTHER RECOMMENDED FOLLOW-UP IN 3 MONTHS. PATIENT HAS EXPRESSED UNDERSTANDING OF AND WAS IN AGREEMENT TREATMENT PLAN. GIVEN TIME TO ASK QUESTIONS AND EXPRESS CONCERNS. , ISTOP REGISTRY REVIEWED AND DEMONSTRATES COMPLLIANCE. (REF # [id number] ) BRINGS IN MEDICATIONS WHICH IS APPROPRIATE FOR WHAT WAS DISPENSED. RECENT URINE TOXICOLOGY REVIEWED. NO UNAUTHORIZED MEDICATIONS. NO ILLICIT SUBSTANCES AND PRESCRIBED MEDICATIONS WERE PRESENT. PROCEDURES PN WORKMANS' COMP OPINION IN YOUR OPINION, WAS THE INCIDENT THAT THE PATIENT DESCRIBED THE COMPETENT MEDICAL CAUSE OF THIS INJURY/ILLNESS? YES ARE THE PATIENT'S COMPLAINTS CONSISTENT WITH HIS/HER HISTORY OF THE INJURY/ILLNESS? YES IS THE PATIENT'S HISTORY OF THE INJURY/ILLNESS CONSISTENT WITH YOUR OBJECTIVE FINDING? YES WHAT IS THE PERCENTAGE OF TEMPORARY IMPAIRMENT? MARKED = 75% IS THE PATIENT WORKING? YES DOCTOR ON SITE: KELLIE CLEMENT MD PROCEDURE CODES FA211 ESTABILISHED PATIENT [facility] FAC[facility] CHARGE DISPOSITION & COMMUNICATION FOLLOW UP 3 MONTHS (REASON: BACK PAIN ) ELECTRONICALLY SIGNED BY EMERITA ARIZA ON 01/19/2021 AT 08:17 AM EDT DISCLAIMER : THIS IS A VISIT SUMMARY EXTRACTED FROM THE [employer] CHART. IT IS NOT A COPY OF THE [employer] PROGRESS NOTE. RAHUL
== END ==
LOC: M PAIN 14:00
PROVIDERS: ATTEND Family Medicine
DX: M51.9 Unspecified thoracic, thoracolumbar and lumbosacral intervertebral disc disorder (principal); E11.9 Type 2 diabetes mellitus without complications; I10 Essential (primary) hypertension; E78.5 Hyperlipidemia, unspecified; Z87.891 Personal history of nicotine dependence; Z79.84 Long term (current) use of oral hypoglycemic drugs; Z79.899 Other long term (current) drug therapy; Z88.2 Allergy status to sulfonamides; Z88.5 Allergy status to narcotic agent; Z88.8 Allergy status to other drugs, medicaments and biological substances; Z88.6 Allergy status to analgesic agent

== ENCOUNTER → 2021-04-18 | Outpatient (CLI) | payer OTHER ==
--- NOTE | 2021-04-29 04:34 | ECWPNPC ---
PATIENT NAME: NEHA HERNÁNDEZ : 1960 GENDER: MALE VISIT DATE: 04/18/2021 DISCHARGE DATE: 04/18/21 1420 VISIT LOCKED DATE TIME: PHYSICIAN: YIN APARICIO PHYSICIAN PAGER NO: ACTIVE RESOURCE: YIN APARICIO REASON FOR APPOINTMENT 1. W/C BACK PAIN HISTORY OF PRESENT ILLNESS DEPRESSION SCREENING: PHQ-2 (2015 EDITION) LITTLE INTEREST OR PLEASURE IN DOING THINGS?NOT AT ALL FEELING DOWN, DEPRESSED, OR HOPELESS?NOT AT ALL TOTAL SCORE0 GENERAL: HPI 60-YEAR-OLD MALE IN FOR WORKER'S COMP. CHRONIC PAIN FOLLOW-UP. HE RATES HIS PAIN CURRENTLY AT AN 8 OUT OF 10 AND DESCRIBES IT ACHING, CONTINUOUS, AND THROBBING. PATIENT DOES ADMIT TO INCREASED PAIN AT TIMES. HE FEELS HIS MEDICATIONS ARE HELPFUL AND DENIES MED SIDE EFFECTS AT THIS TIME.. -. FALL RISK SCREENING: SCREENING : NO FALLS REPORTED IN THE LAST YEAR. PAIN SCREENING: PATIENT HAS A COMPLAINT OF ACUTE OR CHRONIC PAIN :YES LOCATION OF PAIN:LOW BACK INTENSITY OF PAIN (SCALE OF 1 TO 10):8 WHAT DOES YOUR PAIN FEEL LIKE:ACHING, CONTINOUS, THROBBING DURATION:CONTINOUS, CONSTANT, ALL DAY PAIN IS INCREASED BY:ACTIVITIES PAIN IS DECREASED BY:USE OF PAIN MEDICATIONS, OTHERS RESTING NURSING NOTE: -. PAIN CENTER INTAKE QUESTIONS: DO YOU HAVE A HISTORY OF MRSA? :YES A COUPLE OF TIMES - MOST RECENT ONE WHEN HE IS 15 YEARS OLD DO YOU TAKE A BLOOD THINNERS? :NO DO YOU HAVE ANY BLEEDING DISORDERS? :NO ANY NEW NUMBNESS OR WEAKNESS IN YOUR LEGS OR ARMS? :NO ANY PACEMAKER,DEFIBRILLATOR, OR DORSAL COLUMN STIMULATOR? :NO DO YOU HAVE ANY RASHES OR OPEN SORES? :NO ARE YOU ALLERGIC TO IV DYE? :NO ARE YOU DIABETIC? :YES ANY NEW PROBLEMS WITH YOUR MEDICATIONS? :YES PATIENT STATING THAT PATCHES ON BACK NOT WORKING HAVE YOU RECEIVED A VACCINE IN THE PAST 30 DAYS? :NO DO YOU PLAN TO RECEIVE A VACCINE IN THE NEXT 21 DAYS? :NO DO YOU NEED ANY PRESCRIPTION? :NO DO YOU TAKE ANY IMMUNOSUPPRESSIVE MEDICATIONS? :YES ALLOPURINOL IS THERE A CHANCE YOU COULD BE ? :NO ARE YOU BREAST FEEDING? :NO CURRENT MEDICATIONS TAKING MONTELUKAST SODIUM 10 MG TABLET 1 TABLET ORALLY ONCE A DAY TAKING BISOPROLOL-HYDROCHLOROTHIAZIDE 10-6.25 MG TABLET 2 TABLET ORALLY ONCE A DAY TAKING ALLOPURINOL 100 MG TABLET 1 TABLET ORALLY ONCE A DAY TAKING SIMVASTATIN 10 MG TABLET 1 TABLET IN THE EVENING ORALLY ONCE A DAY TAKING VITAMIN D (ERGOCALCIFEROL) 50 MCG (2000 UT) CAPSULE 1 CAPSULE ORALLY ONCE A DAY TAKING AMIODARONE HCL 100 MG TABLET 1 TABLET ORALLY ONCE A DAY TAKING NEXIUM 40 MG CAPSULE DELAYED RELEASE 1 CAPSULE ORALLY ONCE A DAY TAKING GLIPIZIDE 5 MG TABLET 1 TABLET 30 MINUTES BEFORE BREAKFAST ORALLY ONCE A DAY TAKING AMLODIPINE BESYLATE 5 MG TABLET 1 TABLET ORALLY ONCE A DAY TAKING VITAMIN B12 1000 MCG TABLET EXTENDED RELEASE 1 TABLET ORALLY ONCE A DAY TAKING TYLENOL 1 TAB ORAL TAKING BACLOFEN 20 MG TABLET 1 TABLET WITH FOOD OR MILK ORALLY THREE TIMES DAILY TAKING AMITRIPTYLINE HCL 150 MG TABLET 1 TABLET AT BEDTIME ORALLY ONCE A DAY TAKING FENTANYL 12 MCG/HR PATCH 72 HOUR 1 PATCH TO SKIN TRANSDERMAL EVERY 3 DAYS MEDICATION LIST REVIEWED AND RECONCILED WITH THE PATIENT PAST MEDICAL HISTORY DIABETES HYPERTENSION HYPERLIPIDEMIA BACK PAIN ALLERGIES SULFA (FOR ALLERGY USE ONLY) PREDNISONE CELEBREX ZIAC MORPHINE SULFATE METFORMIN HCL GABAPENTIN BUTRANS TRAMADOL HCL TYLENOL ARTHRITIS PAIN ESOMEPRAZOLE MAGNESIUM VALSARTAN CODEINE SULFATE SOCIAL HISTORY GENERAL: TOBACCO USE ARE YOU A:FORMER SMOKER HOW LONG HAS IT BEEN SINCE YOU LAST SMOKED?> 10 YEARS SMOKING CESSATION INFORMATION GIVEN04/06/2020 LATEX QUESTIONNAIRE LATEX ALLERGY : HAVE YOU EVER DEVELOPED ANY TYPE OF REACTION AFTER HANDLING LATEX PRODUCTS SUCH RUBBER GLOVES, CONDOMS, DIAPHRAGMS, BALLOONS, SOCKS, OR UNDERWEAR?NO LATEX ALLERGY : HAVE YOU EVER DEVELOPED ANY TYPE OF REACTION DURING OR AFTER DENTAL APPOINTMENT, VAGINAL/RECTAL EXAMINATION, SURGICAL PROCEDURE, OR ANY OTHER EXPOSURE?NO LATEX RISK : HAVE YOU EVER HAD ANY DIFFICULTY BREATHING OR HIVES AFTER EATING OR HANDLING ANY FRUITS, OR VEGETABLES; SUCH KIWI, BANANAS, STONE FRUITS, OR CHESTNUTSNO LATEX RISK : DO YOU HAVE A PREVIOUS PERSONAL HISTORY OF MORE THAN NINE SURGERIES, SPINA BIFIDA, OR REPEATED CATHERIZATIONS? NO LATEX RISK : ARE YOU FREQUENTLY EXPOSED TO LATEX PRODUCTS IN YOUR OCCUPATION?NO DATE ASKED : 04/18/2021 ALCOHOL USE: YES. ALCOHOL SCREENING INTERPRETATIONNEGATIVE POINTS0 DID YOU HAVE A DRINK CONTAINING ALCOHOL IN THE PAST YEAR?NO RECREATIONAL DRUG USE PATIENT DENIES USE OF ANY ILLEGAL SUBSTANCE INCLUDING MARIJUANA OR COCAINE DENIES PATIENT DENIES ABUSE OR MISSUSED OF ANY MEDICATION DENIES DRUG USE?NO CAFFEINE HOW OFTEN AND HOW MUCH? 2/DAY CAFFEINE USE?YES LANGUAGE LANGUAGES SPOKEN:[place] LEARNING BARRIERS / SPECIAL NEEDS CHANGE FROM LAST VISIT?NO BARRIERS TO LEARNING?NO HEARING IMPAIRED?YES : RIGHT EAR VISION IMPAIRED?YES :CORRECTIVE LENSES COGNITIVELY IMPAIRED?YES : SOME TIMES READINESS TO LEARN?YES LEARNING PREFERENCES?NO LEARNING CAPABILITIES PRESENT?YES EMOTIONAL BARRIERS?NO SPECIAL DEVICES?NO ARCHITECT INTERN NEEDED?NO MARITAL STATUS: . OTHERS AT HOME: NONE. REVIEW OF SYSTEMS CONSTITUTIONAL: ANY RECENT FEVER NO . CHILLS NO . WEIGHT CHANGE OF UNKNOWN REASONS NO . GASTROENTEROLOGY: NEW UNEXPLAINABLE CHANGES IN BOWEL CONTROL NO . CONSTIPATION NO . GENITOURINARY: ANY NEW CHANGE IN BLADDER CONTROL? NO . NEUROLOGY: NEW ONSET DIZZINESS OR NEUROLOGICAL CHANGES NOT MENTIONED NO . NEW NUMBNESS OR PAIN PATTERNS NOT MENTIONED AND PERTINENT TO TODAY'S VISIT NO . CARDIOLOGY: NEW CHEST PRESSURE NO . PATIENT DENIES NO . RESPIRATORY: UNEXPLAINABLE COUGH NO . NEW SHORTNESS OF BREATH NO . VITAL SIGNS WT 252.3 LBS, HT 58 IN, BMI 52.73 INDEX, BP 126/83 MM HG, HR 94 /MIN, RR 18 /MIN, TEMP 95.2 F, OXYGEN SAT % 95%, SAFE IN ENV? (Y/N) YES, NA INITIALS AW 1348T.CYNTHIA MOURA. EXAMINATION GENERAL EXAMINATION: GENERALNO ACUTE DISTRESS, WELL NOURISHED AND HYDRATED. PSYCHAPPROPRIATE MOOD AND AFFECT . LUNGS:CLEAR TO AUSCULTATION BILATERALLY, NO WHEEZES, RHONCHI, RALES. HEART:NO MURMURS, REGULAR RATE AND RHYTHM. 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 CHRONIC PAIN FOLLOW-UP. GIVEN PRESENTING SYMPTOMS RECOMMEND STARTING LYRICA 75 MG TWICE DAILY WITH FOLLOW-UP IN 1 MONTH TO DETERMINE EFFICACY OF TREATMENT. PATIENT HAS AN ALLERGY TO GABAPENTIN SUCH GABAPENTIN CANNOT BE USED. PATIENT HAS EXPRESSED UNDERSTANDING OF AND WAS IN AGREEMENT WITH TREATMENT PLAN. GIVEN TIME TO ASK QUESTIONS AND EXPRESS CONCERNS. ISTOP REGISTRY REVIEWED AND DEMONSTRATES COMPLLIANCE. (REF # ) BRINGS IN MEDICATIONS WHICH IS APPROPRIATE FOR WHAT WAS DISPENSED. RECENT URINE TOXICOLOGY REVIEWED. NO UNAUTHORIZED MEDICATIONS. NO ILLICIT SUBSTANCES AND PRESCRIBED MEDICATIONS WERE PRESENT. CLINICAL NOTES: LYRICA MATERIAL PRINTED AND PROVIDED TO PATIENT. PATIENT VERBALIZED AN UNDERSTANDING. CARLO MARTÍNEZ MA. CHRONIC PRESCRIPTION OPIATE USE LAB: URINE TEST GROUP 6-ACETYLMORPHINE SCREEN NEGATIVE (10 - NG/ML) BENZODIAZEPINES SCREEN NEGATIVE (200 - NG/ML) AMPHETAMINE SCREEN NEGATIVE (1000 - NG/ML) BARBITURATES SCREEN NEGATIVE (200 - NG/ML) BUPRENORPHINE SCREEN NEGATIVE (5 - NG/ML) COCAINE SCREEN NEGATIVE (300 - NG/ML) CARISOPRODOL SCREEN NEGATIVE (100 - NG/ML) FENTANYL SCREEN NEGATIVE (2 - NG/ML) GABAPENTIN SCREEN NEGATIVE (1000 - NG/ML) METHADONE SCREEN NEGATIVE (300 - NG/ML) OPIATES SCREEN NEGATIVE (300 - NG/ML) OXYCODONE SCREEN NEGATIVE (100 - NG/ML) PHENCYCLIDINE SCREEN NEGATIVE (25 - NG/ML) CREATININE 101.6 (>= 20 MG/DL - MG/DL) PH 6 (4.5 - 8.9 - ) CREATININE/SPECIFIC GRAVITY NORMAL (>= 20 MG/DL - ) PH NORMAL (4.5 - 8.9 - ) TCA ANTIDEPRESSANTS SCREEN POSITIVE (150 - NG/ML) CANNABINOIDS SCREEN NEGATIVE (20 - NG/ML) MDMA SCREEN NEGATIVE (500 - NG/ML) TRAMADOL SCREEN NEGATIVE (100 - NG/ML) LAB: URINE TEST GROUP (ORDERED FOR 04/18/2021) CARLO MARTÍNEZ 04/18/2021 2:17:13 PM > FENTANYL 04/18/2021 OTHERS NOTES: PREGABALIN MATERIAL WAS PRINTED. PROCEDURES PN WORKMANS' COMP OPINION IN YOUR OPINION, WAS THE INCIDENT THAT THE PATIENT DESCRIBED THE COMPETENT MEDICAL CAUSE OF THIS INJURY/ILLNESS? YES ARE THE PATIENT'S COMPLAINTS CONSISTENT WITH HIS/HER HISTORY OF THE INJURY/ILLNESS? YES IS THE PATIENT'S HISTORY OF THE INJURY/ILLNESS CONSISTENT WITH YOUR OBJECTIVE FINDING? YES WHAT IS THE PERCENTAGE OF TEMPORARY IMPAIRMENT? MARKED = 75% IS THE PATIENT WORKING? YES DOCTOR ON SITE: KELLIE CELMENT MD LABS LAB: MED FENTANYL CONF, UR FENTANYL NEGATIVE (2.5 - NG/ML) NORFENTANYL 28.1 (5 - NG/ML) ECLINICALWORKS, SUPPORT 04/20/2021 06:40:08 : THIS ORDER WAS CREATED BY THE INTERFACE. LAB: TCA REFLEX SHS, UR AMITRIPTYLINE >1000 (25 - NG/ML) NORTRIPTYLINE 86 (25 - NG/ML) CLOMIPRAMINE NEGATIVE (25 - NG/ML) DOXEPIN NEGATIVE (25 - NG/ML) N-DESMETHYLDOXEPIN NEGATIVE (25 - NG/ML) IMIPRAMINE NEGATIVE (25 - NG/ML) DESIPRAMINE NEGATIVE (25 - NG/ML) TRIMIPRAMINE NEGATIVE (25 - NG/ML) MIRTAZAPINE NEGATIVE (25 - NG/ML) DESMETHYLMIRTAZAPINE NEGATIVE (25 - NG/ML) ECLINICALWORKS, SUPPORT 04/20/2021 06:40:08 : THIS ORDER WAS CREATED BY THE INTERFACE. PROCEDURE CODES FA211 ESTABILISHED PATIENT [facility] CHARGE DISPOSITION & COMMUNICATION FOLLOW UP 4 WEEKS (REASON: BACK PAIN) ELECTRONICALLY SIGNED BY EMERITA ARIZA ON 04/28/2021 AT 09:44 AM EDT DISCLAIMER : THIS IS A VISIT SUMMARY EXTRACTED FROM THE [employer] CHART. IT IS NOT A COPY OF THE [employer] PROGRESS NOTE. RAHUL
== END ==
LOC: M PAIN 14:00
PROVIDERS: ATTEND Family Medicine
DX: M51.86 Other intervertebral disc disorders, lumbar region (principal); Z79.891 Long term (current) use of opiate analgesic; E11.9 Type 2 diabetes mellitus without complications; I10 Essential (primary) hypertension; E78.5 Hyperlipidemia, unspecified; Z87.891 Personal history of nicotine dependence; Z79.84 Long term (current) use of oral hypoglycemic drugs; Z79.899 Other long term (current) drug therapy; Z88.2 Allergy status to sulfonamides; Z88.5 Allergy status to narcotic agent; Z88.8 Allergy status to other drugs, medicaments and biological substances; Z88.6 Allergy status to analgesic agent

== ENCOUNTER → 2021-05-18 | Outpatient (CLI) | payer OTHER | LOC: M PAIN 11:30 | PROVIDERS: ATTEND Anesthesiology | DX: M54.5 Low back pain (principal); E11.9 Type 2 diabetes mellitus without complications; Z79.84 Long term (current) use of oral hypoglycemic drugs; Z79.891 Long term (current) use of opiate analgesic; Z79.899 Other long term (current) drug therapy ==

== ENCOUNTER → 2021-07-14 | Outpatient (CLI) | payer OTHER | LOC: M PAIN 14:00 | PROVIDERS: ATTEND Anesthesiology | DX: M79.18 Myalgia, other site (principal); M54.50 Low back pain, unspecified; E11.9 Type 2 diabetes mellitus without complications; I10 Essential (primary) hypertension; E78.5 Hyperlipidemia, unspecified; Z79.84 Long term (current) use of oral hypoglycemic drugs; Z79.899 Other long term (current) drug therapy; Z87.891 Personal history of nicotine dependence; Z88.2 Allergy status to sulfonamides; Z88.8 Allergy status to other drugs, medicaments and biological substances; Z88.5 Allergy status to narcotic agent ==

== ENCOUNTER → 2021-11-29 | Outpatient (CLI) | payer OTHER | LOC: M PAIN 13:45 | PROVIDERS: ATTEND Nurse Practitioner Family | DX: M79.10 Myalgia, unspecified site (principal); M54.50 Low back pain, unspecified; E11.9 Type 2 diabetes mellitus without complications; I10 Essential (primary) hypertension; E78.5 Hyperlipidemia, unspecified; Z79.891 Long term (current) use of opiate analgesic; Z79.899 Other long term (current) drug therapy; Z87.891 Personal history of nicotine dependence; Z88.2 Allergy status to sulfonamides; Z88.5 Allergy status to narcotic agent; Z88.8 Allergy status to other drugs, medicaments and biological substances; Z88.6 Allergy status to analgesic agent ==

== ENCOUNTER → 2022-01-31 | Outpatient (CLI) | payer OTHER | LOC: M PAIN 14:00 | PROVIDERS: ATTEND Nurse Practitioner Family | DX: M79.10 Myalgia, unspecified site (principal); M54.50 Low back pain, unspecified; E11.9 Type 2 diabetes mellitus without complications; E78.5 Hyperlipidemia, unspecified; Z87.891 Personal history of nicotine dependence; Z88.2 Allergy status to sulfonamides; Z88.5 Allergy status to narcotic agent; Z88.6 Allergy status to analgesic agent; Z88.8 Allergy status to other drugs, medicaments and biological substances; E66.01 Morbid (severe) obesity due to excess calories; Z68.43 Body mass index [BMI] 50.0-59.9, adult; Z79.84 Long term (current) use of oral hypoglycemic drugs; Z79.891 Long term (current) use of opiate analgesic; Z79.899 Other long term (current) drug therapy ==

== ENCOUNTER → 2022-04-28 | Outpatient (CLI) | payer OTHER | LOC: M PAIN 14:00 | PROVIDERS: ATTEND Nurse Practitioner Family | DX: G89.29 Other chronic pain (principal); M54.50 Low back pain, unspecified; E11.9 Type 2 diabetes mellitus without complications; I10 Essential (primary) hypertension; E78.5 Hyperlipidemia, unspecified; Z87.891 Personal history of nicotine dependence; Z79.899 Other long term (current) drug therapy; Z88.2 Allergy status to sulfonamides; Z88.5 Allergy status to narcotic agent; Z88.6 Allergy status to analgesic agent; Z88.8 Allergy status to other drugs, medicaments and biological substances ==

== ENCOUNTER → 2022-08-02 | Outpatient (CLI) | payer OTHER | LOC: M PAIN 16:30 | PROVIDERS: ATTEND Anesthesiology | DX: M54.50 Low back pain, unspecified (principal); M79.10 Myalgia, unspecified site; M79.18 Myalgia, other site; E11.9 Type 2 diabetes mellitus without complications; I10 Essential (primary) hypertension; E78.5 Hyperlipidemia, unspecified; Z87.891 Personal history of nicotine dependence; Z79.84 Long term (current) use of oral hypoglycemic drugs; Z79.899 Other long term (current) drug therapy; Z88.2 Allergy status to sulfonamides; Z88.5 Allergy status to narcotic agent; Z88.8 Allergy status to other drugs, medicaments and biological substances ==

== ENCOUNTER → 2022-10-05 | Outpatient (CLI) | payer OTHER | LOC: M PAIN 09:15 | PROVIDERS: ATTEND Anesthesiology | DX: M79.10 Myalgia, unspecified site (principal); Z79.891 Long term (current) use of opiate analgesic; M79.18 Myalgia, other site; M54.50 Low back pain, unspecified; E11.9 Type 2 diabetes mellitus without complications; I10 Essential (primary) hypertension; E78.5 Hyperlipidemia, unspecified; Z87.891 Personal history of nicotine dependence; Z79.84 Long term (current) use of oral hypoglycemic drugs; Z79.899 Other long term (current) drug therapy; Z88.2 Allergy status to sulfonamides; Z88.8 Allergy status to other drugs, medicaments and biological substances; Z88.5 Allergy status to narcotic agent ==

== ENCOUNTER → 2022-11-01 | Outpatient (CLI) | payer OTHER | LOC: M PAIN 13:30 | PROVIDERS: ATTEND Anesthesiology | DX: M79.18 Myalgia, other site (principal); M54.50 Low back pain, unspecified; G89.29 Other chronic pain; E11.9 Type 2 diabetes mellitus without complications; I10 Essential (primary) hypertension; Z87.891 Personal history of nicotine dependence; Z88.2 Allergy status to sulfonamides; Z88.5 Allergy status to narcotic agent; Z88.6 Allergy status to analgesic agent; Z88.8 Allergy status to other drugs, medicaments and biological substances; E66.01 Morbid (severe) obesity due to excess calories; Z68.42 Body mass index [BMI] 45.0-49.9, adult; Z79.84 Long term (current) use of oral hypoglycemic drugs; Z79.891 Long term (current) use of opiate analgesic; Z79.899 Other long term (current) drug therapy ==

== ENCOUNTER → 2023-01-11 | Outpatient (CLI) | payer OTHER | LOC: M PAIN 14:45 | PROVIDERS: ATTEND Anesthesiology | DX: M79.10 Myalgia, unspecified site (principal); M79.18 Myalgia, other site; E11.9 Type 2 diabetes mellitus without complications; I10 Essential (primary) hypertension; E78.5 Hyperlipidemia, unspecified; M54.9 Dorsalgia, unspecified; Z87.891 Personal history of nicotine dependence; Z79.899 Other long term (current) drug therapy; Z88.2 Allergy status to sulfonamides; Z88.5 Allergy status to narcotic agent; Z88.8 Allergy status to other drugs, medicaments and biological substances ==

== ENCOUNTER → 2023-03-21 | Outpatient (CLI) | payer OTHER | LOC: M PAIN 14:30 | PROVIDERS: ATTEND Anesthesiology | DX: M79.10 Myalgia, unspecified site (principal); Z79.891 Long term (current) use of opiate analgesic; M79.18 Myalgia, other site; M54.50 Low back pain, unspecified; E11.9 Type 2 diabetes mellitus without complications; I10 Essential (primary) hypertension; E78.5 Hyperlipidemia, unspecified; Z87.891 Personal history of nicotine dependence; Z79.84 Long term (current) use of oral hypoglycemic drugs; Z79.899 Other long term (current) drug therapy; Z88.2 Allergy status to sulfonamides; Z88.5 Allergy status to narcotic agent; Z88.8 Allergy status to other drugs, medicaments and biological substances ==

== ENCOUNTER → 2023-06-06 | Outpatient (CLI) | payer OTHER | LOC: M PAIN 13:45 | PROVIDERS: ATTEND Anesthesiology | DX: M79.18 Myalgia, other site (principal); M79.10 Myalgia, unspecified site; G89.29 Other chronic pain; M54.50 Low back pain, unspecified; E11.9 Type 2 diabetes mellitus without complications; I10 Essential (primary) hypertension; E78.5 Hyperlipidemia, unspecified; Z87.891 Personal history of nicotine dependence; Z79.899 Other long term (current) drug therapy; Z88.2 Allergy status to sulfonamides; Z88.5 Allergy status to narcotic agent; Z88.8 Allergy status to other drugs, medicaments and biological substances; Z79.84 Long term (current) use of oral hypoglycemic drugs ==

== ENCOUNTER → 2023-09-05 | Outpatient (CLI) | payer OTHER | LOC: M PAIN 13:30 | PROVIDERS: ATTEND Anesthesiology | DX: M47.816 Spondylosis without myelopathy or radiculopathy, lumbar region (principal); M79.10 Myalgia, unspecified site; G89.29 Other chronic pain; Z87.891 Personal history of nicotine dependence; Z88.2 Allergy status to sulfonamides; Z88.5 Allergy status to narcotic agent; Z88.6 Allergy status to analgesic agent; Z88.8 Allergy status to other drugs, medicaments and biological substances; E66.01 Morbid (severe) obesity due to excess calories; Z68.42 Body mass index [BMI] 45.0-49.9, adult; Z79.84 Long term (current) use of oral hypoglycemic drugs; Z79.891 Long term (current) use of opiate analgesic; Z79.899 Other long term (current) drug therapy ==

== ENCOUNTER → 2024-01-02 | Outpatient (CLI) | payer OTHER | LOC: M PAIN 13:00 | PROVIDERS: ATTEND Anesthesiology | DX: M54.50 Low back pain, unspecified (principal); Z79.891 Long term (current) use of opiate analgesic; M79.10 Myalgia, unspecified site; M79.18 Myalgia, other site; Z88.2 Allergy status to sulfonamides; Z88.5 Allergy status to narcotic agent; Z88.6 Allergy status to analgesic agent; Z88.8 Allergy status to other drugs, medicaments and biological substances ==

== ENCOUNTER → 2024-02-13 | Outpatient (CLI) | payer OTHER | LOC: M PAIN 15:30 | PROVIDERS: ATTEND Anesthesiology | DX: M47.816 Spondylosis without myelopathy or radiculopathy, lumbar region (principal); M79.18 Myalgia, other site; G89.29 Other chronic pain; M54.50 Low back pain, unspecified; E11.9 Type 2 diabetes mellitus without complications; I10 Essential (primary) hypertension; E78.5 Hyperlipidemia, unspecified; Z87.891 Personal history of nicotine dependence; Z79.84 Long term (current) use of oral hypoglycemic drugs; Z79.899 Other long term (current) drug therapy; Z88.2 Allergy status to sulfonamides; Z88.5 Allergy status to narcotic agent; Z88.8 Allergy status to other drugs, medicaments and biological substances; Z88.6 Allergy status to analgesic agent ==

== ENCOUNTER → 2024-04-09 | Outpatient (CLI) | payer OTHER | LOC: M PAIN 11:30 | PROVIDERS: ATTEND Anesthesiology | DX: M47.816 Spondylosis without myelopathy or radiculopathy, lumbar region (principal); Z79.891 Long term (current) use of opiate analgesic; M79.10 Myalgia, unspecified site; M79.18 Myalgia, other site; G89.29 Other chronic pain; M54.50 Low back pain, unspecified; E11.9 Type 2 diabetes mellitus without complications; I10 Essential (primary) hypertension; E78.5 Hyperlipidemia, unspecified; Z79.899 Other long term (current) drug therapy; Z87.891 Personal history of nicotine dependence; Z88.2 Allergy status to sulfonamides; Z88.5 Allergy status to narcotic agent; Z88.8 Allergy status to other drugs, medicaments and biological substances ==

== ENCOUNTER → 2024-06-11 | Outpatient (CLI) | payer OTHER | LOC: M PAIN 11:30 | PROVIDERS: ATTEND Anesthesiology | DX: M47.816 Spondylosis without myelopathy or radiculopathy, lumbar region (principal); G89.29 Other chronic pain; E11.9 Type 2 diabetes mellitus without complications; I10 Essential (primary) hypertension; E78.5 Hyperlipidemia, unspecified; Z87.891 Personal history of nicotine dependence; Z79.84 Long term (current) use of oral hypoglycemic drugs; Z79.899 Other long term (current) drug therapy; Z88.2 Allergy status to sulfonamides; Z88.5 Allergy status to narcotic agent; Z88.8 Allergy status to other drugs, medicaments and biological substances ==

== ENCOUNTER → 2024-07-04 | Outpatient (CLI) | payer OTHER, MEDICARE, MEDICAID | LOC: M PLARAD 13:07 | PROVIDERS: ATTEND Anesthesiology | DX: M47.816 Spondylosis without myelopathy or radiculopathy, lumbar region (principal) ==

== ENCOUNTER → 2024-08-06 | Outpatient (CLI) | payer OTHER | LOC: M PAIN 11:15 | PROVIDERS: ATTEND Anesthesiology | DX: M47.816 Spondylosis without myelopathy or radiculopathy, lumbar region (principal); G89.29 Other chronic pain; E11.9 Type 2 diabetes mellitus without complications; I10 Essential (primary) hypertension; E78.5 Hyperlipidemia, unspecified; Z98.42 Cataract extraction status, left eye; Z87.891 Personal history of nicotine dependence; Z79.84 Long term (current) use of oral hypoglycemic drugs; Z79.899 Other long term (current) drug therapy; Z88.2 Allergy status to sulfonamides; Z88.5 Allergy status to narcotic agent; Z88.6 Allergy status to analgesic agent; Z88.8 Allergy status to other drugs, medicaments and biological substances ==

== ENCOUNTER → 2024-11-18 | Outpatient (CLI) | payer OTHER | LOC: M PAIN 10:30 | PROVIDERS: ATTEND Anesthesiology | DX: M47.816 Spondylosis without myelopathy or radiculopathy, lumbar region (principal); M79.10 Myalgia, unspecified site; Z79.84 Long term (current) use of oral hypoglycemic drugs; Z79.891 Long term (current) use of opiate analgesic; Z79.899 Other long term (current) drug therapy; Z87.891 Personal history of nicotine dependence; Z88.2 Allergy status to sulfonamides; Z88.5 Allergy status to narcotic agent; Z88.6 Allergy status to analgesic agent; Z88.8 Allergy status to other drugs, medicaments and biological substances; E66.01 Morbid (severe) obesity due to excess calories; Z68.42 Body mass index [BMI] 45.0-49.9, adult ==